=== PATIENT | female | born 1945 | race Caucasian/White ===

== ENCOUNTER 2025-05-12 12:46 | Emergency (ER) | payer BC, OTHER ==
[~2025-05-12] VITALS: Ht 175.3 cm; Wt 86.6 kg
[2025-05-12 13:00] VITALS: TEMP 98.8
[2025-05-12 14:34] LABS: PLATELET COUNT (AUTO) 399 K/uL (150-450); RED BLOOD CELL COUNT(AUTO) 5.03 MIL/uL (4.0-5.2); RED CELL DISTRIBUTION WIDTH 15.4 % (11.5-15.0); WHITE BLOOD COUNT (AUTO) 15.3 K/uL (4.3-11.0)
[2025-05-12] MEDS ORDERED: ALBUTEROL FS 2.5 MG/3 ML VIAL.NEB ONE (14:34)
[2025-05-12] MEDS ORDERED: IPRATROPIUM NEB FS 0.5 MG/2.5 ML AMPUL.NEB ONE (14:34)
[2025-05-12 14:35] VITALS: O2SAT 93
[2025-05-12 14:37] LABS: CALCIUM, SERUM 9.9 mg/dL (8.5-10.1); CREATININE 1.1 mg/dL (0.6-1.3); SODIUM SERUM 135 mmol/L (136-145); UREA NITROGEN, BLOOD 31 mg/dL (7-18)
[2025-05-12] MEDS: ALBUTEROL FS 2.5 MG/3 ML VIAL.NEB NEB ONE (14:46)
[2025-05-12] MEDS: IPRATROPIUM NEB FS 0.5 MG/2.5 ML AMPUL.NEB NEB ONE (14:46)
[2025-05-12 14:49] LABS: ASPARTATE AMINOTRANSFERASE 37 U/L (15-37); NT-PRO BNP 631 pg/mL (0-125); TOTAL PROTEIN, SERUM 7.2 g/dL (6.4-8.2)
[2025-05-12 15:24] VITALS: O2SAT 93
[2025-05-12 16:45] VITALS: BP 123/73
[2025-05-12] MEDS ORDERED: ALBUTEROL FS 2.5 MG/0.5 ML VIAL.NEB ONE ×2 (17:57→18:05)
[2025-05-12 18:05] VITALS: O2SAT 93
[2025-05-12] MEDS: ALBUTEROL FS 2.5 MG/0.5 ML VIAL.NEB NEB ONE ×2 (18:10)
[2025-05-12 18:25] VITALS: O2SAT 93
== END 2025-05-12 18:42 | disposition short-term general hospital (02) ==
LOC: ER 12:54
DX: R06.02 Shortness of breath (principal); R05.9 Cough, unspecified; R06.2 Wheezing; R07.9 Chest pain, unspecified; D72.829 Elevated white blood cell count, unspecified; E11.9 Type 2 diabetes mellitus without complications; E78.5 Hyperlipidemia, unspecified; I11.0 Hypertensive heart disease with heart failure; I50.9 Heart failure, unspecified; J44.9 Chronic obstructive pulmonary disease, unspecified; Z88.1 Allergy status to other antibiotic agents; Z88.2 Allergy status to sulfonamides; Z88.5 Allergy status to narcotic agent; Z88.8 Allergy status to other drugs, medicaments and biological substances; Z91.041 Radiographic dye allergy status; Z85.828 Personal history of other malignant neoplasm of skin
CPT/HCPCS: 36415; 71045-TC; 80048-TC; 80076-TC; 83880; 84484-TC; 85025-TC